=== PATIENT | female | born 1940 | race Caucasian/White ===

== ENCOUNTER 2018-10-20 17:46 | Emergency (ER) | payer MEDICARE, OTHER ==
--- NOTE | 2018-10-20 18:22 | ER Document Report ---
ED Medical Screen (RME) - General Chief Complaint: Fever Stated Complaint: WEAKNESS Time Seen by Provider: 10/20/18 18:17 Primary Care Provider: LOU BOSTON MD [Primary Care Provider] - Follow up as needed Mode of Arrival: Wheelchair Information source: Patient Notes: 78-year-old female presents with weakness, chills, nausea. Patient reports that she attempted to stand up and slid out of the chair. She reports recent treatment of a urinary tract infection with Macrobid. I have greeted and performed a rapid initial assessment of this patient. A comprehensive ED assessment and evaluation of the patient, analysis of test results and completion of medical decision making process we will be contacted by additional ED providers. PHYSICAL EXAMINATION: Vital signs reviewed GENERAL: Well-appearing, well-nourished and in no acute distress. LUNGS: No respiratory distress Musculoskeletal: Normal range of motion NEUROLOGICAL: Normal speech, normal gait. PSYCH: Normal mood, normal affect. SKIN: Warm, Dry, normal turgor, no rashes or lesions noted. TRAVEL OUTSIDE OF THE [place] IN LAST 30 DAYS: No - HPI Onset: Just prior to arrival Quality of pain: Achy Associated Symptoms: Abdominal pain, Chills, Nausea, Weakness Exacerbated by: Denies Relieved by: Denies Similar symptoms previously: Yes Recently seen / treated by doctor: Yes - Related Data Smoking: Non-smoker Frequency of alcohol use: None Drug Abuse: None Allergies/Adverse Reactions: Sulfa (Sulfonamide Antibiotics) Allergy (Intermediate, Verified 03/02/15 14:20) rash, feeling of weakness zoster vaccine live [From ZOSTAVAX] Allergy (Intermediate, Verified 03/02/15 14:20) rash, itch, swelling @ site of inj Past Medical History - Social History Chew tobacco use (# tins/day): No Frequency of alcohol use: None Drug Abuse: None - Past Medical History Cardiac Medical History: Reports: Hx Hypercholesterolemia - meds x 15 years, Hx Hypertension - meds x 20 years Denies: Hx Atrial Fibrillation, Hx Congestive Heart Failure, Hx Coronary Artery Disease, Hx Heart Attack, Hx Peripheral Vascular Disease, Hx Heart Murmur Pulmonary Medical History: Denies: Hx Asthma Neurological Medical History: Denies: Hx Cerebrovascular Accident, Hx Seizures Renal/ Medical History: Denies: Hx Peritoneal Dialysis Malignancy Medical History: Denies: Hx Leukemia GI Medical History: Reports: Hx Gastroesophageal Reflux Disease - rare, denies meds. Denies: Hx Crohn's Disease, Hx Hepatitis, Hx Hiatal Hernia, Hx Irritable Bowel, Hx Liver Failure, Hx Pancreatitis, Hx Ulcer Musculoskeltal Medical History: Reports Hx Arthritis, Denies Hx Fibromyalgia, Denies Hx Muscular Dystrophy Traumatic Medical History: Denies: Hx Fractures Infectious Medical History: Denies: Hx Hepatitis, Hx HIV Past Surgical History: Reports: Hx Tonsillectomy - as child. Denies: Hx Appendectomy, Hx Bowel Surgery, Hx Section, Hx Cholecystectomy, Hx Colostomy, Hx Coronary Artery Bypass Graft, Hx Gastric Bypass Surgery, Hx Herniorrhaphy, Hx Hysterectomy, Hx Mastectomy, Hx Open Heart Surgery, Hx Pac emaker, Hx Tubal Ligation Physical Exam - Vital signs Vitals: Temp Pulse Resp BP Pulse Ox 98.5 F 79 16 146/71 H 98 10/20/18 17:53 10/20/18 17:53 10/20/18 17:53 10/20/18 17:53 10/20/18 17:53 Course - Vital Signs Vital signs: Temp Pulse Resp BP Pulse Ox 98.5 F 79 16 146/71 H 98 10/20/18 17:53 10/20/18 17:53 10/20/18 17:53 10/20/18 17:53 10/20/18 17:53 Doctor's Discharge - Discharge Referrals: LOU BOSTON MD [Primary Care Provider] - Follow up as needed
[2018-10-20 19:06] LABS: ABSOLUTE LYMPHOCYTES (AUTO) 0.7 10^3/uL (0.5-4.7); ABSOLUTE MONOCYTES (AUTO) 0.9 10^3/uL (0.1-1.4); ABSOLUTE NEUT (AUTO) 7.5 10^3/uL (1.7-8.2); BASOPHILS % (AUTO) 0.4 % (0-2); EOSINOPHILS % (AUTO) 0.1 % (0-6); HEMATOCRIT 39.8 % (36.0-47.0); HEMOGLOBIN 13.7 g/dL (12.0-15.5); LYMPHOCYTES % (AUTO) 8.1 % (13-45); MEAN CORPUSCULAR HEMOGLOBIN 32.5 pg (27.0-33.4); MEAN CORPUSCULAR HGB CONC 34.5 g/dL (32.0-36.0); MEAN CORPUSCULAR VOLUME 94 fl (80-97); MONOCYTES % (AUTO) 9.7 % (3-13); PLATELET COUNT 154 10^3/uL (150-450); RED BLOOD COUNT 4.23 10^6/uL (3.72-5.28); RED CELL DISTRIBUTION WIDTH 12.8 % (11.5-14.0); SEGMENTED NEUTROPHILS % (AUTO) 81.7 % (42-78); TOTAL CELLS COUNTED % (AUTO) 100 %; WHITE BLOOD COUNT 9.1 10^3/uL (4.0-10.5)
[2018-10-20 19:24] LABS: ALANINE AMINOTRANSFERASE 77 U/L (9-52); ALBUMIN 4.2 g/dL (3.5-5.0); ALKALINE PHOSPHATASE 168 U/L (38-126); ANION GAP 12 (5-19); ASPARTATE AMINO TRANSFERASE 78 U/L (14-36); BILIRUBIN,DIRECT 0.5 mg/dL (0.0-0.4); BILIRUBIN,TOTAL 0.7 mg/dL (0.2-1.3); BLOOD UREA NITROGEN 13 mg/dL (7-20); CALCIUM 9.3 mg/dL (8.4-10.2); CARBON DIOXIDE 25 mmol/L (22-30); CHLORIDE 99 mmol/L (98-107); CREATINE KINASE 223 U/L (30-135); GLUCOSE 136 mg/dL (75-110); POTASSIUM 3.3 mmol/L (3.6-5.0); SODIUM 135.8 mmol/L (137-145); TOTAL PROTEIN 7.5 g/dL (6.3-8.2)
[2018-10-20 19:26] LABS: APPEARANCE,URINE SLIGHTLY-CLOUDY; BILIRUBIN,URINE NEGATIVE (NEGATIVE); COLOR,URINE AMBER; GLUCOSE, URINE 50 mg/dL (NEGATIVE); KETONES,URINE TRACE mg/dL (NEGATIVE); LEUKOCYTE ESTERASE,URINE TRACE (NEGATIVE); NITRITE,URINE NEGATIVE (NEGATIVE); PROTEIN,URINE 30 mg/dL (NEGATIVE)
--- NOTE | 2018-10-20 19:30 | EKG REPORT ---
SEVERITY:- ABNORMAL ECG - SINUS RHYTHM LEFT AXIS DEVIATION LVH WITH SECONDARY REPOLARIZATION ABNORMALITY CONSIDER ANTERIOR INFARCT : Confirmed by: Edwardo Sierra MD 20-Oct-2018 19:30:20
[2018-10-20 19:37] LABS: CREATINE KINASE MB 1.56 ng/mL (<4.55); TROPONIN I 0.017 ng/mL
--- NOTE | 2018-10-20 22:42 | RADIOLOGY REPORT (SQ) ---
EXAM DESCRIPTION: XR CHEST 1 VIEW COMPLETED DATE/TME: 10/20/2018 22:12 CLINICAL HISTORY: 78 years, Female, weakness COMPARISON: 03/18/2015. Findings: The heart is moderately enlarged. Aorta is within normal limits. No consolidations or pleural effusions. No pulmonary edema or pneumothorax. Left upper lobe calcified granuloma. IMPRESSION: No acute disease.
[2018-10-20] MEDS ORDERED: POTASSIUM CHLORIDE 20 MEQ/15 ML UDCUP PO ONE (22:56)
[2018-10-20] MEDS ORDERED: NORMAL SALINE 1000 ML 1,000 ML IV ONE (22:56)
[2018-10-20 23:30] LABS: A TYPE INFLUENZA AG NEGATIVE (NEGATIVE); B INFLUENZA AG NEGATIVE (NEGATIVE)
--- NOTE | 2018-10-21 00:14 | ER Document Report ---
ED General - General Chief Complaint: Fever Stated Complaint: WEAKNESS Time Seen by Provider: 10/20/18 18:17 Primary Care Provider: LOU BOSTON MD [NO LOCAL MD] - Follow up as needed Mode of Arrival: Wheelchair Notes: Patient is a 78-year-old female presents to the emergency department for generalized weakness. She done her in the room patient was trying to get out of her chair when she slipped forward falling onto the ground. Patient and family are denying any injury to the patient's head, neck, back. Patient states she physically could not get herself up off the floor. and patient states this is abnormal for her she typically is able to move around on her own. Patient was recently treated with Macrobid for a urinary tract infection at the [facility] she finished antibiotics a few days ago. Patient is denying any cough, congestion, nausea, vomiting, diarrhea, dysuria. Past medical history: Thoracic aneurysm Medications: Nifedipine Allergies: Sulfa TRAVEL OUTSIDE OF THE [place] IN LAST 30 DAYS: No - Related Data Allergies/Adverse Reactions: Sulfa (Sulfonamide Antibiotics) Allergy (Intermediate, Verified 10/20/18 19:45) rash, feeling of weakness zoster vaccine live [From ZOSTAVAX] Allergy (Intermediate, Verified 10/20/18 19:45) rash, itch, swelling @ site of inj Past Medical History - General Information source: Patient - Social History Smoking Status: Former Smoker Chew tobacco use (# tins/day): No Frequency of alcohol use: None Drug Abuse: None Family History: Reviewed & Not Pertinent Patient has suicidal ideation: No Patient has homicidal ideation: No - Past Medical History Cardiac Medical History: Reports: Hx Hypercholesterolemia - meds x 15 years, Hx Hypertension - meds x 20 years Denies: Hx Atrial Fibrillation, Hx Congestive Heart Failure, Hx Coronary Artery Disease, Hx Heart Attack, Hx Peripheral Vascular Disease, Hx Heart Murmur Pulmonary Medical History: Denies: Hx Asthma Neurological Medical History: Denies: Hx Cerebrovascular Accident, Hx Seizures Renal/ Medical History: Denies: Hx Peritoneal Dialysis Malignancy Medical History: Denies: Hx Leukemia GI Medical History: Reports: Hx Gastroesophageal Reflux Disease - rare, denies meds. Denies: Hx Crohn's Disease, Hx Hepatitis, Hx Hiatal Hernia, Hx Irritable Bowel, Hx Liver Failure, Hx Pancreatitis, Hx Ulcer Musculoskeletal Medical History: Reports Hx Arthritis, Denies Hx Fibromyalgia, Denies Hx Muscular Dystrophy Traumatic Medical History: Denies: Hx Fractures Infectious Medical History: Denies: Hx Hepatitis, Hx HIV Past Surgical History: Reports: Hx Tonsillectomy - as child. Denies: Hx Appendectomy, Hx Bowel Surgery, Hx Section, Hx Cholecystectomy, Hx Colostomy, Hx Coronary Artery Bypass Graft, Hx Gastric Bypass Surgery, Hx Herniorrhaphy, Hx Hysterectomy, Hx Mastectomy, Hx Open Heart Surgery, Hx Pacemaker, Hx Tubal Ligation - Immunizations Hx Pneumococcal Vaccination: 08/12/10 Review of Systems - Review of Systems Constitutional: See HPI EENT: No symptoms reported Cardiovascular: denies: Chest pain, Palpitations, Heart racing, Orthopnea, Dyspnea, Syncope, Dizziness, Lightheaded Respiratory: No symptoms reported Gastrointestinal: No symptoms reported Genitourinary: No symptoms reported Female Genitourinary: No symptoms reported Musculoskeletal: No symptoms reported Skin: No symptoms reported Hematologic/Lymphatic: No symptoms reported Neurological/Psychological: See HPI Physical Exam - Vital signs Vitals: Temp Pulse Resp BP Pulse Ox 98.5 F 79 16 146/71 H 98 10/20/18 17:53 10/20/18 17:53 10/20/18 17:53 10/20/18 17:53 10/20/18 17:53 - Notes Notes: GENERAL: Alert, interacts well. No acute distress. HEAD: Normocephalic, atraumatic. EYES: Pupils equal, round, and reactive to light. Extraocular movements intact. ENT: Oral mucosa moist, tongue midline. NECK: Full range of motion. Supple. Trachea midline. LUNGS: Clear to auscultation bilaterally, no wheezes, rales, or rhonchi. No respiratory distress. HEART: Regular rate and rhythm. No murmur ABDOMEN: Soft, non-tender. Non-distended. Bowel sounds present in all 4 quadrants. EXTREMITIES: Moves all 4 extremities spontaneously. No edema, normal radial and dorsalis pedis pulses bilaterally. No cyanosis. 5 out of 5 strength all 4 extremities BACK: no cervical, thoracic, lumbar midline tenderness. No saddle anesthesia, normal distal neurovascular exam. NEUROLOGICAL: Alert and oriented x3. Normal speech. cranial nerves II through XII grossly intact. PSYCH: Normal affect, normal mood. SKIN: Warm, dry, normal turgor. No rashes or lesions noted. Course - Re-evaluation Re-evalutation: 10/21/18 00:14 Patient's labs show no signs of leukocytosis, no signs of anemia, patient's sodium was noted to be 135.8 with a potassium of 3.3. She was treated with normal saline solution in the emergency department and potassium replacement. Patient's urine shows no signs of urinary tract infection, sent for culture. Patient's influenza testing was negative, chest x-ray reveals no signs of pneumonia, pneumothorax, rib fracture. After fluid hydration in the emergency department patient was walked by PCT Milena. Was states patient is very steady on her feet and is denying weakness. I have reassessed the patient and she states she feels "great." Also discussed with who states he feels as though she was steady on her feet. Discussed discharge at this time and follow-up closely with primary care provider. Patient and are agreeable with plan. Patient stable for discharge. - Vital Signs Vital signs: Temp Pulse Resp BP Pulse Ox 98.5 F 79 16 146/71 H 98 10/20/18 17:53 10/20/18 17:53 10/20/18 17:53 10/20/18 17:53 10/20/18 17:53 - Laboratory Result Diagrams: 10/20/18 18:50 10/20/18 18:50 Laboratory results interpreted by me: 10/20/18 10/20/18 10/20/18 18:50 18:50 18:58 Seg Neutrophils % 81.7 H Lymphocytes % 8.1 L Sodium 135.8 L Potassium 3.3 L Glucose 136 H Direct Bilirubin 0.5 H AST 78 H ALT 77 H Alkaline Phosphatase 168 H Creatine Kinase 223 H Urine Protein 30 H Urine Glucose (UA) 50 H Urine Ketones TRACE H Urine Urobilinogen 4.0 H Ur Leukocyte Esterase TRACE H Urine Ascorbic Acid 40 H Discharge - Discharge Clinical Impression: Weakness Condition: Stable Disposition: HOME, SELF-CARE Instructions: Weakness (OM) Additional Instructions: As we discussed you have been seen and treated in the emergency department today for your generalized weakness. Your labs were unremarkable. It did show that your potassium was minorly low. Please make sure that you follow-up with your primary care provider for recheck. Please also stay well-hydrated with plenty of fluids. Your urine shows no signs of infection. Please return to the emergency room should he have any other concerning symptom. Referrals: LOU BOSTON MD [NO LOCAL MD] - Follow up as needed
[2018-10-21 00:54] VITALS: BP 135/72
== END 2018-10-21 00:53 | disposition home or self-care (01) ==
LOC: ER 17:46
DX: R53.1 Weakness (principal); R50.9 Fever, unspecified; E78.00 Pure hypercholesterolemia, unspecified; I10 Essential (primary) hypertension; Z88.2 Allergy status to sulfonamides
CPT/HCPCS: 93005; 99284; 96360; 36415; 87040; 87086; 82553; 82550; 83735; 85025; 87088; 80053; 81001; 84484; 87186; 87804; 71045; 93010; A9270; J7030